=== PATIENT | male | born 1965 | race Caucasian/White ===

== ENCOUNTER 2024-08-09 10:00 | Outpatient (CLI) | payer BC, SELFPAY ==
--- NOTE | 2024-08-09 10:15 | MR_ITS ---
[address] [address] Phone:?[phone] Fax:?[phone] Referring Physician Information: Tanner Martinez M.D. [id number] [address] Phone:?[phone] Fax:?[phone] Patient:Shun Gauthier D.O.B:?1965 Sex:?Male Phone:?[phone] [facility] MRN:?[id number] Exam Date:?08/09/2024 EXAM: MRI OF THE RIGHT KNEE CLINICAL INFORMATION: The patient is a 59-year-old with right knee pain. Evaluate distal quadriceps. PRIOR SURGERY: None reported. COMPARISON STUDIES: There are no prior studies available for comparison. TECHNICAL INFORMATION: Imaging was performed on a high-field, 1.5 Anita MR scanner. Axial proton-density and fat-suppressed T2 imaging of the right knee was performed in addition to sagittal proton-density and fat-suppressed proton- density imaging. Coronal proton-density and coronal STIR imaging was produced. FINDINGS: Articular/Extraarticular collections: Effusion: Mild. Popliteal cyst: Small, seen on sagittal series 6 image 24. Loose bodies: No well-defined intra-articular loose bodies are present. Subcutaneous and extraarticular soft tissues: Within normal limits. Osseous structures: Reactive bony changes are seen involving the superior aspect of the patella at the distal quadriceps insertion site, in keeping with the tendinosis and tearing discussed below. No other bony abnormalities about the knee are present. There is no evidence for fracture, contusion, or stress injury. Ligamentous structures: ACL: Intact and normal in appearance. PCL: Intact and normal in appearance. MCL: Intact and normal in appearance. LCL: Intact and normal in appearance. Posterolateral corner: Intact and normal in appearance. Posteromedial corner: No posteromedial corner soft tissue injury. Semimembranosus and pes anserine tendons demonstrate no tendinopathy or associated bursitis. Extensor mechanism/Patellar retinacular structures: Patellar tendon: Intact, without tendinopathy. Quadriceps tendon: The distal quadriceps tendon is abnormal in appearance. Moderate changes of distal quadriceps tendinosis can be seen with superimposed partial-thickness intrasubstance and superficial surface tearing of the distal tendon fibers seen on coronal series 8 image 5, sagittal series 6 image 13, and on axial series 4 image 8. The area of tearing measures approximately 12 mm in craniocaudal dimension, 13 mm in mediolateral dimension, and 10 mm in anteroposterior dimension. Intact the fibers can be seen with additional fibers noted along the medial and lateral aspects of the distal quadriceps. No evidence for rupture is identified. Surrounding soft tissue edema and/or hemorrhage can be seen with reactive bony changes within the patella at the distal quadriceps insertion. Retinacula: The medial and lateral retinacula are intact. The medial patellofemoral ligament is intact. Medial compartment: Medial meniscus: No evidence for medial meniscal tearing can be seen. There is no evidence for parameniscal cyst formation. No meniscocapsular separation injury is identified. Medial femoral condyle: No chondromalacia, chondral defect, or osteochondral abnormality. Medial tibial plateau: No chondromalacia, chondral defect, or osteochondral abnormality. Lateral compartment: Lateral meniscus: No evidence for lateral meniscal tearing is present. No evidence for parameniscal cyst formation can be seen. Lateral femoral condyle: No chondromalacia, chondral defect, or osteochondral abnormality. Lateral tibial plateau: No chondromalacia, chondral defect, or osteochondral abnormality. Patellofemoral compartment: Patella: There are broad-based changes of grade II to III chondromalacia seen along the lateral patellar facet on axial series 4 image 13, measuring 18 mm in mediolateral dimension. No full-thickness patellar chondral defects are identified. Trochlea: No chondromalacia, chondral defect, or osteochondral abnormality. Neurovascular: No definite neurovascular abnormalities are seen. CONCLUSION: 1. Moderate distal quadriceps tendinosis with superimposed partial-thickness tearing as described above. 2. The cruciate and collateral ligaments appear intact. 3. No evidence for medial or lateral meniscal tearing is seen. 4. Chondromalacia involving the lateral patellar facet. 5. Mild knee joint effusion and small popliteal cyst. [facility] Electronically signed on 08/09/2024 1:51:00 PM by Toni Eduardo M.D.
== END 2024-08-09 10:01 | disposition home or self-care (01) ==
LOC: MRI 10:02
PROVIDERS: Visit Provider Orthopaedic Surgery
DX: M25.561 Pain in right knee (principal); S86.911A Strain of unspecified muscle(s) and tendon(s) at lower leg level, right leg, initial encounter; M22.41 Chondromalacia patellae, right knee; M25.461 Effusion, right knee
CPT/HCPCS: 73721

== ENCOUNTER 2024-10-03 16:15 | Outpatient (RCR) | payer BC, SELFPAY | END 2025-01-31 23:59 | disposition home or self-care (01) | PROVIDERS: Visit Provider Orthopaedic Surgery | DX: M25.561 Pain in right knee (principal); M76.899 Other specified enthesopathies of unspecified lower limb, excluding foot; Z51.89 Encounter for other specified aftercare | CPT/HCPCS: 97110; 97112; 97140; 97161 ==